=== PATIENT | female | born 1965 | race Two or more races ===

== ENCOUNTER 2021-09-22 16:34 | Emergency (ER) | payer BC ==
[~2021-09-22] VITALS: Ht 157.5 cm; Wt 86.2 kg
--- NOTE | 2021-09-22 17:10 | NUR ---
Received pt 56 yrs female walking in c/o abdomina pain with vomiting and diahrea on and off for 4 days abdomin soft none tender to touch
--- NOTE | 2021-09-22 17:15 | NUR ---
Seen by inserted ango catheter #[id number] on lt AC blood drow and send to lab UA sended to lab ivf NS infused and patent
[2021-09-22] MEDS ORDERED: ONDANSETRON 4 MG/2 ML VIAL IV ONE (17:30)
[2021-09-22] MEDS ORDERED: KETOROLAC TROMETHAMINE 15 MG INJ IVP ONE (17:30)
[2021-09-22] MEDS ORDERED: IV NORMAL SALINE 1000 ML BAG IV ONE (17:30)
[2021-09-22 17:35] LABS: HEMATOCRIT 41.2 % (31.2-41.9); MEAN CORPUSCULAR HEMOGLOBIN 30.9 uug (24.7-32.8); MEAN CORPUSCULAR VOLUME 90.3 fL (75.5-95.3); PLATELET COUNT (AUTO) 212 K/uL (179-408)
[2021-09-22 17:39] LABS: *BILIRUBIN,URIN 1+ (NEGATIVE); *BLOOD, URINE 2+ (NEGATIVE); *CLARITY,URINE CLEAR (CLEAR); *COLOR,URINE YELLOW (YELLOW); *KETONES,URINE 4+ (NEGATIVE); *URINE HCG, QUAL NEG (NEGATIVE); *UROBILINOGEN,URINE 0.2 E.U./dl (NORMAL); LEUKOCYTE ESTERASE ,URINE 1+ (NEGATIVE); NITRITE, URINE NEGATIVE (NEGATIVE); PH,URINE 5.5 (5.0-8.0); UGLUCOSE NEGATIVE (NEGATIVE)
[2021-09-22] MEDS ORDERED: KETOROLAC TROMETHAMINE 15 MG INJ ONE (17:39)
[2021-09-22] MEDS ORDERED: ONDANSETRON 4 MG/2 ML VIAL ONE (17:39)
[2021-09-22 17:41] LABS: CREATININE 0.8 mg/dL (0.6-1.3); POTASSIUM 3.4 mmol/L (3.5-5.1)
[2021-09-22 17:53] LABS: BILIRUBIN,DIRECT 0.1 mg/dL (0.0-0.2); BILIRUBIN,TOTAL 0.8 mg/dL (0.2-1.0); TOTAL PROTEIN, SERUM 7.4 g/dL (6.4-8.2)
--- NOTE | 2021-09-22 18:00 | NUR ---
Abdomina US done at bed side resting and comfortable vs stabe
[2021-09-22] MEDS ORDERED: ONDA4TAB5 PO (18:19)
[2021-09-22 18:39] LABS: BACTERIA,URINE MANY /HPF (NONE SEEN); URINE AMORPHOUS URATE MANY /HPF
--- NOTE | 2021-09-22 18:40 | NUR ---
vingt Abdominale pain 0/10 responded to TX resting at this time pt abdomin soft none tender to touch dineses any nausea feeling improving and resolving .
--- NOTE | 2021-09-22 18:53 | NUR ---
Hand off to Teetee MURGUIA pt resting and comfortable wating for US result
--- NOTE | 2021-09-22 19:00 | NUR ---
Received report from BLADE Lau. Pt noted to be in bed resting, comfortably. A/O x4. Denies any pain/discomfort at this time.
[2021-09-22] MEDS ORDERED: NITR100C11 PO (20:12)
[2021-09-22] MEDS ORDERED: HYDR-4209 PO (20:12)
--- NOTE | 2021-09-22 20:30 | NUR ---
Patient discharged to home in stable condition. Written and verbal after care instructions given. Patient verbalizes understanding of instructions. Stressed follow up or return to ER for worsening s/s. Steady gait, no SOB or labored breathing. Denies pain/discomfort upon discharge. No n/v/d. Accompanied by .
[2021-09-22 20:31] VITALS: BP 110/67
== END 2021-09-22 20:31 | disposition home or self-care (01) ==
LOC: ER 16:37
DX: R10.84 Generalized abdominal pain (principal); N39.0 Urinary tract infection, site not specified; R11.2 Nausea with vomiting, unspecified; R19.7 Diarrhea, unspecified; Z88.2 Allergy status to sulfonamides
CPT/HCPCS: 36415; 76700; 80048; 80076; 81001; 83690; 84703; 85025; 87086; 93005; 96361; 96374; 96375; 99285; J1885; J2405; A4663; J7040